=== PATIENT | female | born 1980 | race Two or more races ===

== ENCOUNTER 2016-07-01 13:45 | Day surgery (SDC) | payer OTHER ==
[2016-07-01] MEDS ORDERED: MORPHINE SULFATE 4 MG/1 ML IVP ONE (14:06)
[2016-07-01] MEDS ORDERED: Sodium Chloride 0.9% 1,000 ML PRIMARY IV ONE (14:06)
[2016-07-01] MEDS ORDERED: ONDANSETRON 4 MG/2 ML VIAL IVP ONE (14:06)
--- NOTE | 2016-07-01 14:14 | PDOC ---
Gen Adult / Medical Screen HPI - General Chief Complaint: General Medical Stated Complaint: PERITONEAL C/O Date Seen by Provider: 07/01/16 Time Seen by Provider: 14:07 Source: POSITIVE: Patient, Spouse Exam Limitations: POSITIVE: No limitations Nurse's Notes Reviewed & Considered: Yes - Indicators Temperature Between 95 and 101 Degrees: Yes Respirations Between 12 and 20: Yes Blood Pressure Between 100-165 (sys) and 60-100 (mosley): Yes Pulse Range Between 60-105 (100 for age > 60 years): No (158) Severe Pain (Greater than 5/10 Reported): Yes (Giorgio-anal) Chest or Abdominal Pain: No Inability to Walk: No Pt Reports Active High Risk Cond. (TB/Hepatitis/HIV/Chemo): No Abnormal Mental Status: No - History of Present Illness Initial Comments: Patient comes in today with a perianal abscess. Patient was seen by her primary care physician Saturday, started on Augmentin and Percocet. Today she comes in with increasing pain, constipation secondary to pain and drainage from an area of the left perianal region. She states she has had fevers to 100. Denies any nausea, vomiting, she is constipated. Denies any chest pain, shortness of breath, or cough. Headache earlier today. - Patient Home Medications Home Medications: Home Medications Norethindrone-E.estradiol-Iron [Microgestin Fe 1.5-30 Tab] 1 tab PO DAILY #3 tab 12/21/15 Ibuprofen 1 tab PO Q8H #30 tab 05/17/16 Amoxicillin/Potassium Clav [Amox-Clav 875-125 Mg Tablet] 1 tab PO Q12H #20 tab 06/27/16 Oxycodone HCl/Acetaminophen [Oxycodone-Acetaminophen 5-325] 1 tab PO Q4-6H #14 tab 06/29/16 - Patient Allergies Allergies/Adverse Reactions: Allergies Allergy/AdvReac Type Severity Reaction Status Date / Time No Known Allergies Allergy Verified 07/01/16 13:52 Past Medical History - starr VALLADARES History: Denies History Cardiovascular History: Denies History Respiratory History: Denies History Gastrointestinal History: Denies History Genitourinary History: Denies History Endocrine History: Gestational Diabetes Additional Endocrine History: diet and glyburide control Musculoskeletal History: Denies History Neurological History: Denies History Blood Disorders: Denies History Psychiatric History: Denies History History of Sexually Transmitted Diseases: No LMP: 06/25/16 Obstetrical History: Delivery Cancer History: Denies History In Past Year Been Physically Harmed or Verbally Threatened: No History of MDRO: No History of Other Communicable Diseases: No Tobacco Use: Never Smoker Alcohol Use: Rarely Substance Use Type: None Previous Surgical History: Yes Type / Date of Surgery: wisdom tooth extraction Anesthesia Reactions: No Malignant Hyperthermia: No Significant Family History: Heart disease, Diabetes ROS - Limitations ROS Limitations: No Limitations Constitution: REPORTS: Fever Cardiovascular: REPORTS: Denies Cardiac Symptoms Respiratory: REPORTS: Denies Resp Symptoms Neurological: REPORTS: Denies Neuro Symptoms Gastrointestinal: REPORTS: Other (giorgio-anal abscess with drainage and pain) Endocrine: REPORTS: Denies Symptoms Musculoskeletal: REPORTS: Denies MS Symptoms Genitourinary: REPORTS: Denies Symptoms Eyes: REPORTS: Denies Symptoms ENT: REPORTS: Denies Symptoms Skin: REPORTS: Denies Skin Symptoms Lympathic: REPORTS: Denies Lympathic Symptoms Immunologic: POSITIVE: Denies Symptoms Psychiatric: POSITIVE: Anxiety Gen Adult/Medical Screen Exam - General Appearance General Appearance: POSITIVE: Alert, Cooperative, No Evidence of Trauma, Moderate Distress - HEENT HEENT: POSITIVE: Head Inspection Nml, Eyes Inspection Nml, Ears Inspection Nml, Nose Inspection Nml, PERRL, EOMI - Pupils Pupil Size: 4 mm: Bilateral - Neck Neck: POSITIVE: Normal Inspection - Respiratory Respiratory: POSITIVE: No Respiratory Distress, Breath Sounds Normal, Chest Non- Tender - Cardiovascular Cardiovascular: POSITIVE: Regular Rate & Rhythm, No Murmur, No Gallop, PMI Normal - Abdomen Abdomen: Soft: (All Quadrants), Normal Bowel Sounds: (All Quadrants), Denies Tenderness: (All Quadrants) - Rectal Rectal: POSITIVE: Tenderness (Tenderness, swelling, erythema left perianal region. She has had drainage from this area today.) - Back Back: POSITIVE: Normal Inspection - Neurological / Psychological Mental Status: POSITIVE: Mood Normal Orientation: POSITIVE: Oriented x 3 - Skin Skin: POSITIVE: Normal Color, Warm, Dry, No Rash - Extremities Extremity: Non-Tender: (All Extremities), Normal ROM: (All Extremities), Normal Inspection: (All Extremities) Gen Adlt/Medical Scrn Progress - Results Reviewed by me Lab Results Reviewed: Yes Lab Results:: Laboratory Results 07/01/16 07/01/16 Range/Units 14:15 14:25 WBC 13.04 H (4.8-10.8) 10^3/uL RBC 4.44 (4.20-5.40) 10^6/uL Hgb 12.0 (12.0-16.0) g/dL Hct 36.6 L (37.0-47.0) % MCV 82.4 (81-99) FL MCH 27.0 (27-31) PG MCHC 32.8 L (33-37) g/dL RDW Std Deviation 46.2 (39-50) fL RDW Coeff of Isaac 15.5 H (11.5-14.5) % Plt Count 340 (140-350) 10*3/uL MPV 9.5 (7.4-12.2) FL Immature Gran % (Auto) 0.2 (0-5) % Neut % (Auto) 74.5 (50-80) % Lymph % (Auto) 19.9 (10-50) % [place] % (Auto) 4.3 L (5-15) % Eos % (Auto) 0.5 (0-8) % Baso % (Auto) 0.6 (0-1) % Immature Gran # (Auto) 0.03 10*3/UL Neut # (Auto) 9.71 10*3/UL Lymph # (Auto) 2.60 10*3/uL [place] # (Auto) 0.56 (0.3-0.8) 10*3/UL Eos # (Auto) 0.06 10*3/UL Baso # (Auto) 0.08 10*3/UL WBC Morphology Comment Normal morphology (NORM) Plt Morphology Comment Normal morphology (NORM) RBC Morph Comment Normal morphology (NORM) Sodium 141 (135-145) meq/L Potassium 2.9 L (3.8-5.2) meq/L Chloride 102 (98-112) meq/L Carbon Dioxide 25 (23-33) meq/L Anion Gap 14 (5-20) BUN 8 (7-22) mg/dL Creatinine 0.7 (0.50-1.20) mg/dL Estimated GFR > 60 (>60 ml/min/1.73m(2)) BUN/Creatinine Ratio 11.42 (6-20) Glucose 127 H (78-110) mg/dL Calculated Osmolality 291.0 (267-292) mOsm/kg Lactic Acid 1.3 (0.70-2.10) MMOL/L Calcium 8.7 (8.7-10.7) mg/dL Total Bilirubin 0.5 (0.3-1.2) mg/dL AST 17 (8-39) IU/L ALT 29 (9-52) IU/L Alkaline Phosphatase 143 H (38-126) IU/L Total Protein 7.1 (6.1-8.0) g/dL Albumin 3.5 (3.5-4.8) g/dL Globulin 3.7 (2.50-4.10) g/dL Albumin/Globulin Ratio 0.90 L (1.3-2.0) mg/g - Patient's Progress Pain Medication Addressed: POSITIVE: Yes Re-Examine Time: 14:57 Status: POSITIVE: Improved MDM / ED Course: Patient was examined, an IV started, blood drawn and sent to the lab for studies. Patient received a liter of normal saline, morphine, and Zofran. Her pain did improve. Findings: CBC shows an elevated white count. Assessment: Rectal abscess. Plan: Dr. Hackett in consult and will be taking the patient to surgery for indicated procedures. - Consult Consult (If Yes, Name of Consulting MD & Time Called): Yes (Dr. Hackett 1080) Consulting MD will see pt:: POSITIVE: In ED Counseled: POSITIVE: Patient, Family, RE: Lab Results, RE: DX Patient Care Time - Estimated PCT Patient Care Time (In Minutes): 30 Vital Signs - Recent Vital Signs Vital Signs: Vital Signs (Last 8 hours) Temp Pulse Resp BP Pulse Ox 07/01/16 13:53 96.9 F 150 H 16 132/104 96 - VS Reviewed Vital Signs Reviewed: Yes Discharge Clinical Impression: Perirectal abscess Discharge Disposition: Transferred to OR (Dr. Hackett is taking the patient to surgery for indicated procedures.) Condition: Stable
[2016-07-01 14:35] LABS: BASOPHILS # (AUTO) 0.08 10*3/UL; BASOPHILS % (AUTO) 0.6 % (0-1); EOSINOPHILS % (AUTO) 0.5 % (0-8); HEMATOCRIT 36.6 % (37.0-47.0); IMM GRAN % (AUTO) 0.2 % (0-5); IMM GRAN# (AUTO) 0.03 10*3/UL; LYMPHOCYTES % (AUTO) 19.9 % (10-50); MEAN CORPUSCULAR HGB CONC 32.8 g/dL (33-37); MEAN PLATELET VOLUME 9.5 FL (7.4-12.2); MONOCYTES # (AUTO) 0.56 10*3/UL (0.3-0.8); MONOCYTES % (AUTO) 4.3 % (5-15); NEUTROPHILS # (AUTO) 9.71 10*3/UL; NEUTROPHILS % (AUTO) 74.5 % (50-80); RDW COEFFICIENT OF VARIATION 15.5 % (11.5-14.5); RED BLOOD COUNT 4.44 10^6/uL (4.20-5.40); WHITE BLOOD COUNT 13.04 10^3/uL (4.8-10.8)
[2016-07-01 14:37] LABS: PLATELET MORPHOLOGY COMMENT NORMAL MORPHOLOGY (NORM)
[2016-07-01 14:39] LABS: ASPARTATE AMINO TRANSFERASE 17 IU/L (8-39); BILIRUBIN,TOTAL 0.5 mg/dL (0.3-1.2); BLOOD UREA NITROGEN 8 mg/dL (7-22); BUN/CREATININE RATIO 11.42 (6-20); CALCIUM 8.7 mg/dL (8.7-10.7); CHLORIDE 102 meq/L (98-112); CREATININE 0.7 mg/dL (0.50-1.20); EST GLOMERULAR FILTRATION > 60 (>60 ml/min/1.73m(2)); GLUCOSE 127 mg/dL (78-110); LACTATE 1.3 MMOL/L (0.70-2.10); POTASSIUM 2.9 meq/L (3.8-5.2); SODIUM 141 meq/L (135-145); TOTAL PROTEIN 7.1 g/dL (6.1-8.0)
--- NOTE | 2016-07-01 15:38 | MINORPROC ---
Outpatient History & Physical Chief Complaint: Patient states that 4 weeks she's had what they thought was a perirectal abscess. She's been on Augmentin. Patient states that it drained a little bit on Saturday but now the pain is unbearable. Present Illness: According to Dr. Ferraro the patient has a perirectal abscess History: General: WNL, HEENT: WNL, Respiratory: WNL, Cardiovascular: WNL, Gastrointestinal: ABN (perirectal abscess) Physical Exam: Chest/Lungs: WNL, Heart: WNL Home Medications: Home Medications Medication Instructions Recorded Confirmed Type Norethindrone-E.estradiol-Iron 1 tab PO DAILY #3 tab 12/21/15 07/01/16 Clinic [Microgestin Fe 1.5-30 Tab] Ibuprofen 1 tab PO Q8H #30 tab 05/17/16 07/01/16 Clinic Amoxicillin/Potassium Clav 1 tab PO Q12H #20 tab 06/27/16 07/01/16 Clinic [Amox-Clav 875-125 Mg Tablet] Oxycodone HCl/Acetaminophen 1 tab PO Q4-6H #14 tab 06/29/16 07/01/16 Clinic [Oxycodone-Acetaminophen 5-325] Allergies/Adverse Reactions: Allergies Allergy/AdvReac Type Severity Reaction Status Date / Time No Known Allergies Allergy Verified 07/01/16 13:52 Impression / Plan: History patient is a perirectal abscess. She'll be taken the OR for examination anesthesia and I&D of abscess. At this is indeed a thrombosed hemorrhoid appropriate treatment will be done. If it's a perianal fissure will do a lateral internal sphincterotomy Transfusion: Transfusion Not Anticipated Anesthesia Plans: Local
[2016-07-01] MEDS ORDERED: KETAMINE 100 MG/1 ML - 5 ML ONE (15:53)
[2016-07-01] MEDS ORDERED: fentaNYL Inj 100 MCG/2 ML VIAL ONE (15:54)
[2016-07-01] MEDS ORDERED: MIDAZOLAM 5 MG/1 ML ONE (15:55)
[2016-07-01] MEDS ORDERED: DEXAMETHASONE PF 10 MG/1 ML VIAL ONE (15:58)
[2016-07-01] MEDS ORDERED: LIDOCAINE HCL 1%/EPI 1:100,000 - 20 ML VIAL ONE (15:59)
[2016-07-01] MEDS ORDERED: BUPIVACAINE 0.5% W/ EPI - 10 ML VIAL ONE (15:59)
--- NOTE | 2016-07-01 16:31 | GEN.OPNOTE ---
Operative Note Surgery Date: 07/01/16 Preoperative Diagnosis: Perirectal abscess Postoperative Diagnosis: Perirectal abscess Procedure: I&D of a complex perirectal abscess Surgeon: Gen Hackett MD Anesthesia Provider: Patricia Black CRNA Anesthesia Type: Local, MAC Estimated Blood Loss (mL): 10 Fluids: LR please see anesthesia notes in EMR Pathology: None sent Indications: This patient has had a perirectal abscess. She was seen in the clinic and with cellulitis and started on Augmentin. At that time it sounded like the abscess had already started to drain. According to notes in the EMR the patient wanted to try conservative treatment Findings: Patient had a complex ventral perirectal abscess that had horseshoe the post the peritoneum Operative Summary: Patient is brought in the OR placed supine position given IV sedation. Placed in dorsolithotomy position. Timeout performed per protocols. Grant rectal area prepped draped sterile fashion. I then infiltrated 0.5 Marcaine and 1% Xylocaine with epinephrine and localized abscess cavity. Crucifix incision was made initially on the left. This was the largest abscess cavity. I bluntly dissected the cavity and all the loculations 1 cavity. The 6 extended up into the labia majora. It went across the perineal body to the right side. I made a counter crucifix incision under local anesthetic to allow additional drainage. Patient tolerated procedure well the were no complications. Counts were correct. Additional Details: Since patient is [place] antibiotics I think she'll continue the Augmentin. Should issues peripads for dressings.
[2016-07-01] MEDS ORDERED: Lactated Ringers 1,000 ML PRIMARY IV ONE (16:33)
[2016-07-01] MEDS ORDERED: KETOROLAC 30 MG/1 ML VIAL ONE (16:37)
[2016-07-01] MEDS ORDERED: oxyCODONE/APAP 7.5/325 Tab 1 TAB TAB PO ONE ×2 (17:00→17:01)
[2016-07-01 18:00] VITALS: RESP 22; TEMP 98.3
== END 2016-07-01 17:30 | disposition home or self-care (01) ==
LOC: ER 13:45 → SDSC 15:33
PROVIDERS: ATTEND Surgery
DX: K61.1 Rectal abscess (principal)
CPT/HCPCS: 36415; 46040; 80053; 83605; 85025; 87040; 96361; 96374; 96375; 99284 ×2; J1885; J2704; J3010; J1100; J2250; J2270; J2405; J7030; J7120